=== PATIENT | female | born 1965 | race Caucasian/White ===

== ENCOUNTER 2018-03-07 13:56 | Outpatient (CLI) | payer OTHER | END 2018-03-07 13:57 | disposition home or self-care (01) | LOC: BICULT 13:56 | PROVIDERS: ATTEND Urology | DX: N39.0 Urinary tract infection, site not specified (principal); R35.0 Frequency of micturition | CPT/HCPCS: 76770 ==

== ENCOUNTER 2018-03-19 14:31 | Outpatient (CLI) | payer OTHER ==
[~2018-03-19 14:31] MED LIST: Gadobenate Dimeglumine 529 MG/1 ML (20ML VIAL) ONE
== END 2018-03-19 14:32 | disposition home or self-care (01) ==
LOC: BICMRI 14:31
PROVIDERS: ATTEND Nurse Practitioner Family
DX: M47.26 Other spondylosis with radiculopathy, lumbar region (principal); M99.81 Other biomechanical lesions of cervical region; Z98.890 Other specified postprocedural states
CPT/HCPCS: 72156; A9579

== ENCOUNTER 2018-06-18 15:23 | Outpatient (CLI) | payer OTHER ==
--- NOTE | 2018-06-19 14:05 | CT ---
CT CERVICAL SPINE WITHOUT CONTRAST: HISTORY: Evaluate cervical fusion. COMPARISON: None. TECHNIQUE: CT cervical spine is performed without contrast. FINDINGS: No craniocervical dissociation. Lateral masses of C1 and C2 articulate appropriately. Odontoid proc ess is intact. 2.4 mm of anterolisthesis of C3 upon C4, 2.5 mm retrolisthesis of C5 upon C6. No fracture. No preve rtebral soft tissue swelling. Visualized soft tissue neck structures are unremarkable. The mediasti num and lung apices are also unremarkable. There is an anterior fusion plate with transvertebral body screw at C6 and C7. No perihardware lucen cy. There is a prosthesis of the C6-C7 disk space. C2-C3: No significant central canal stenosis. Foramen are patent. C3-C4: No significant central canal stenosis. There is mild degenerative change in both uncovertebr al joints. Mild right foraminal narrowing. The left neural foramen is patent. C4-C5: No significant disk-osteophyte complex. No significant central canal stenosis. Foramen are patent. C5-C6: There is severe loss of disk space height. There is a broad-based disk-osteophyte complex wh ich abuts the thecal sac. There is at least mild central canal stenosis. Degenerative changes in th e bilateral uncovertebral joints result in moderate in moderate right and severe left foraminal narro wing. C6-C7: There is a broad-based osteophyte ridge without significant central canal stenosis. There ar e degenerative changes in bilateral uncovertebral joints with mild right and mild to moderate left fo raminal narrowing. C7-T1: No significant disk-osteophyte complex. No significant central canal stenosis. Neural layne crissy are patent bilaterally. IMPRESSION: 1. Uncomplicated cervical fusion. 2. There is no high-grade central canal stenosis. There is significant bilateral foraminal narrowin g at C5-C6 and C6-C7. POS: [facility]
== END 2018-06-18 15:24 | disposition home or self-care (01) ==
LOC: BICCT 15:23
PROVIDERS: ATTEND Neurological Surgery
DX: M54.12 Radiculopathy, cervical region (principal); M99.81 Other biomechanical lesions of cervical region; Z98.1 Arthrodesis status
CPT/HCPCS: 72125

== ENCOUNTER 2018-06-20 05:35 | Day surgery (SDC) | payer OTHER ==
[2018-06-13 08:57] VITALS: BMI 28.6
--- NOTE | 2018-06-19 23:01 | HP ---
HISTORY OF PRESENT ILLNESS: Ms. Augustin is a pleasant 53-year-old woman, a patient of jakub Brar ho is referred to us for evaluation of axial neck pain with radiation to the left upper extremity in a C6 fashion. She has had therapy, epidural steroid injections, facet blocks, all of which helped he r symptoms and varying degrees of success, but she still unfortunately has to daily with severe pain. New MRI from [facility] reveals prior C6-C7 fusion and adjacent to that superiorly has a retrolisthesis of C5 on C6 associated with foraminal stenosis bilaterally. She hopes to move forwar d with surgery if possible. PAST MEDICAL HISTORY: Significant for anxiety, chronic pain, and epilepsy. PAST SURGICAL HISTORY: ACDF, left foot, cholecystectomy, hysterectomy. CURRENT MEDICATIONS: Estradiol, escitalopram. ALLERGIES: SULFA MEDICATIONS. PHYSICAL EXAMINATION: NEUROLOGIC: The patient is alert and oriented x3. Gait is normal, no ataxia. Upper extremity motor exam is normal. She also has limited range of motion in her neck secondary to pain. ASSESSMENT: Cervical radiculopathy. PLAN: Dr. Augustin met with the patient, reviewed imaging and ultimately advocated for a revision C5-C6 ACDF with removal of hardware at C6-C7. He explained to the patient the risks, benefits, and altern atives of the procedure. The patient expressed understanding and would like to move forward with eder de souza as discussed. I do believe the patient is mentally competent and capable of making medical deci sions for herself and we will move forward with surgery as planned. George Colorado PA-C dictating for Dr. Augustin.
[2018-06-20] MEDS ORDERED: CEFAZOLIN/Water 2 GM/20 ML SYRINGE ONE (06:06)
[2018-06-20] MEDS ORDERED: Thrombin 5000 UNITS/5 ML VIAL ONE (06:16)
[2018-06-20] MEDS ORDERED: Midazolam HCl 2 mg/2 ml Vial ONE (06:49)
[2018-06-20] MEDS ORDERED: Fentanyl 100 MCG/2 ML VIAL ONE (06:59)
--- NOTE | 2018-06-20 08:51 | OP ---
DATE OF PROCEDURE: 06/20/2018 SURGEON: Francisco Augustin M.D. MANAGER ASSURANCE: George Colorado PA-C. INDICATION: Pain. DIAGNOSES: Cervical spondylolisthesis, cervical radiculopathy. PROCEDURES PERFORMED: Removal of anterior instrumentation, anterior cervical diskectomy and fusion C 5-C6, placement of allograft, placement of autograft. ANESTHESIA: General. TECHNIQUE: The patient was brought into the operating room and placed under general anesthesia. She was placed on the table in a supine position. A transverse incision was planned over the lateral as pect of the neck on the right. After prepping and draping and after an appropriate operative pause, the incision was created. The underlying platysma muscle identified and incised. A blunt tissue ana ne anterior to the sternocleidomastoid muscle was used to gain access to the prevertebral space. Thi s was an area of prior surgery, so we spent more than usual time dissecting through scar. We did jenny ntify the patient's prior cervical plate at C6-C7, which was removed in total. We then redirected ou r attention to the level above at C5-C6 where an annulotomy was performed. All the disk material as well as anterior and posterior osteophytes were removed. After complete decompression, a 6 mm lordot ic PEEK cage packed with allograft and autograft material was placed in the interbody space. An ante rior cervical plate was then fashioned in front of the spine and secured with a total of four screws. Midline and lateral structures were found to be free from significant trauma. The wound was irriga braulio. Hemostasis was maintained throughout. The wound was then closed in anatomic layers and a press ure dressing was applied. There were no known procedural complications.
[2018-06-20] MEDS ORDERED: HYDROcodone/Acetaminophen 5/325 mg Tablet ONE (09:49)
[2018-06-20] MEDS ORDERED: Glycopyrrolate 0.2 MG/ML 5 ML SYRINGE ONE (11:34)
[2018-06-20] MEDS ORDERED: Lidocaine 1% PF 5 ML VIAL ONE (11:34)
[2018-06-20] MEDS ORDERED: Dexamethasone 20 MG/5 ML VIAL ONE (11:34)
[2018-06-20] MEDS ORDERED: PROPOFOL 200 MG/20 ML VIAL ONE (11:34)
[2018-06-20] MEDS ORDERED: Ondansetron HCl/PF 4 MG/2 ML Vial ONE (11:34)
== END 2018-06-20 10:55 | disposition home or self-care (01) ==
LOC: SDC 05:35
PROVIDERS: ATTEND Neurological Surgery
PROC: 0RT30ZZ Resection of Cervical Vertebral Disc, Open Approach (ICD-10-PCS; principal; 2018-06-20)
PROC: 0RG10A0 Fusion of Cervical Vertebral Joint with Interbody Fusion Device, Anterior Approach, Anterior Column, Open Approach (ICD-10-PCS; principal; 2018-06-20)
PROC: 0RP104Z Removal of Internal Fixation Device from Cervical Vertebral Joint, Open Approach (ICD-10-PCS; principal; 2018-06-20)
DX: M43.12 Spondylolisthesis, cervical region (principal); M54.12 Radiculopathy, cervical region; M48.061 Spinal stenosis, lumbar region without neurogenic claudication; F41.9 Anxiety disorder, unspecified; G40.909 Epilepsy, unspecified, not intractable, without status epilepticus; Z79.899 Other long term (current) drug therapy; Z98.1 Arthrodesis status; Z88.2 Allergy status to sulfonamides
CPT/HCPCS: 76001; 96374; C1713; C1776; J0131; J1100; J2001; J2250; J2405; J2704; J3010

== ENCOUNTER 2018-07-31 08:19 | Outpatient (CLI) | payer OTHER ==
--- NOTE | 2018-07-31 10:09 | RAD ---
CERVICAL SPINE THREE VIEWS: HISTORY: A 53-year-old female with a history of follow-up surgery. COMPARISON: CT scan of the cervical spine from 06/18/2018. FINDINGS: There has been intervening surgery, with removal of the metal plate and screws at C6-C7 and placement of anterior cervical fusion changes at C5-C6. There is approximately 0.3 cm of anterolisthesis of C 3 on C4. Mild retrolisthesis of C5 on C6. No significant abnormal prevertebral soft tissue swelling . IMPRESSION: 1. Anterior cervical fusion changes at C5-C6. 2. Anterolisthesis, 0.3 cm, of C3 on C4. POS: [facility]
== END 2018-07-31 08:20 | disposition home or self-care (01) ==
LOC: TBSIIMAG 08:19
PROVIDERS: ATTEND Neurological Surgery
DX: M54.12 Radiculopathy, cervical region (principal); M43.12 Spondylolisthesis, cervical region; Z98.1 Arthrodesis status
CPT/HCPCS: 72040

== ENCOUNTER 2019-07-08 15:01 | Outpatient (CLI) | payer OTHER ==
--- NOTE | 2019-07-08 15:39 | RAD ---
Exam:2 views left knee HISTORY: Pain COMPARISON: None FINDINGS: Severe degenerative change in the medial compartment. No fracture or malalignment. Trace mroton prapatellar effusion. IMPRESSION: Severe degenerative change in the medial compartment.
--- NOTE | 2019-07-08 15:39 | RAD ---
Exam:2 views right knee HISTORY: Right knee pain COMPARISON: None FINDINGS: Mild degenerative changes medial compartment. No fracture or malalignment. No significant j oint effusion. IMPRESSION: Mild degenerative change in the medial compartment
== END 2019-07-08 15:02 | disposition home or self-care (01) ==
LOC: BICRAD 15:01
PROVIDERS: ATTEND Family Medicine
DX: M25.561 Pain in right knee (principal); M25.562 Pain in left knee; M17.0 Bilateral primary osteoarthritis of knee

== ENCOUNTER 2022-09-07 19:51 | Emergency (ER) | payer OTHER | END 2022-09-07 22:00 | disposition home or self-care (01) | LOC: ERS 19:51 | DX: S00.83XA Contusion of other part of head, initial encounter (principal); S00.33XA Contusion of nose, initial encounter; W01.0XXA Fall on same level from slipping, tripping and stumbling without subsequent striking against object, initial encounter | CPT/HCPCS: 70450; 70486; 72125 ==

== ENCOUNTER 2023-10-05 12:14 | Outpatient (CLI) | payer OTHER | END 2023-10-05 12:15 | disposition home or self-care (01) | LOC: SCSMRI 12:14 | PROVIDERS: ATTEND Family Medicine | DX: M47.26 Other spondylosis with radiculopathy, lumbar region (principal); M47.817 Spondylosis without myelopathy or radiculopathy, lumbosacral region; M47.815 Spondylosis without myelopathy or radiculopathy, thoracolumbar region | CPT/HCPCS: 72148 ==

== ENCOUNTER 2023-11-10 10:33 | Outpatient (CLI) | payer OTHER | END 2023-11-10 10:34 | disposition home or self-care (01) | LOC: BICULT 10:33 | PROVIDERS: ATTEND Family Medicine | DX: N28.1 Cyst of kidney, acquired (principal); N28.89 Other specified disorders of kidney and ureter | CPT/HCPCS: 76770 ==

== ENCOUNTER 2025-05-01 10:09 | Outpatient (CLI) | payer OTHER | END 2025-05-01 10:10 | disposition home or self-care (01) | LOC: BICRAD 10:09 | PROVIDERS: ATTEND Podiatrist | DX: M19.071 Primary osteoarthritis, right ankle and foot (principal) ==

== ENCOUNTER 2025-07-30 08:55 | Outpatient (CLI) | payer OTHER | END 2025-07-30 08:56 | disposition home or self-care (01) | LOC: SCSBT 08:55 → SCSRAD 08:56 | PROVIDERS: ATTEND Family Medicine | DX: Z09 Encounter for follow-up examination after completed treatment for conditions other than malignant neoplasm (principal); Z87.09 Personal history of other diseases of the respiratory system | CPT/HCPCS: 70220 ==